=== PATIENT | female | born 1990 | race Two or more races ===

== ENCOUNTER 2019-02-18 21:41 | Emergency (ER) | payer OTHER ==
[2019-02-18] MEDS ORDERED: Acetaminophen TAB* 325 MG PO ONE (21:47)
[2019-02-18] MEDS ORDERED: Bacitracin OINTMENT* 0.5% 0.5 oz TUBE TOPICAL ONE (21:47)
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
[2019-02-18 22:42] VITALS: BP 118/78
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
== END 2019-02-18 22:41 | disposition home or self-care (01) ==
LOC: ED 21:41
DX: S80.01XA Contusion of right knee, initial encounter (principal); R04.0 Epistaxis; S00.33XA Contusion of nose, initial encounter; M25.562 Pain in left knee; M25.561 Pain in right knee; V03.90XA Pedestrian on foot injured in collision with car, pick-up truck or van, unspecified whether traffic or nontraffic accident, initial encounter; Y92.9 Unspecified place or not applicable
CPT/HCPCS: 70160; 99281

== ENCOUNTER 2023-01-11 00:36 | Inpatient (IN) ==
[2023-01-11] MEDS ORDERED: Buffered Lidocaine 1% SYRIN 1 ml INTRADERM ONE (01:16)
[2023-01-11] MEDS ORDERED: Lactated Ringers 1000 ml BAG 1,000 ML IV ONE ×2 (01:16→20:01)
[2023-01-11] MEDS ORDERED: Lactated Ringers 1000 ml BAG 1,000 ML IV SCH ×2 (02:00→21:00)
[2023-01-11 02:08] LABS: ABS Eosinophils 0.1 10^3/ul (0-0.6); ABS Lymphocytes 2.3 10^3/ul (1.0-4.8); ABS Monocytes 0.9 10^3/ul (0-0.8); ABS Neutrophils 6.4 10^3/ul (1.5-7.7); Eosinophil % 0.6 %; Hematocrit 37 % (35-47); Lymphocyte % 24.1 %; Mean Corpuscular HGB Conc 33 g/dL (31-36); Mean Corpuscular Hemoglobin 29 pg (27-31); Mean Corpuscular Volume 88 fL (80-97); Mean Platelet Volume 9.1 fL (7.4-10.4); Platelet Count 245 10^3/uL (150-450); Red Blood Count 4.21 10^6 /uL (3.70-4.87); Red Cell Distribution Width 15 % (10-15); White Blood Count 9.7 10^3/uL (3.5-10.8)
[2023-01-11] MEDS: Nalbuphine 10 MG/ML 1 ML VIAL IV PRN ×2 (02:41→16:24)
[2023-01-11] MEDS: Promethazine INJ(RESTRICTED) 25 MG/ML 1 ml VIAL IV PRN ×2 (02:42→16:24)
[2023-01-11] MEDS ORDERED: Lidocaine 1.5% EPI 1:200,000 30 ML SDV ONE (19:54)
[2023-01-11] MEDS ORDERED: OBEPIDURAL (200 ML) 200 ML EPIDURAL ONE (19:54)
[2023-01-11] MEDS ORDERED: Bupivacaine 0.25% SDV PF 10 ML VIAL INJ ONE (19:58)
[2023-01-11] MEDS ORDERED: Sodium Citrate/Citric Acid LIQ 15 ML UDC PO PRN (20:01)
[2023-01-11] MEDS ORDERED: OBEPIDURAL (200 ML) 200 ML EPIDURAL SCH (21:00)
[2023-01-11] MEDS ORDERED: Oxytocin in LR 20,000 MILLI.UNIT/1,000 ML BAG IV SCH (23:30)
[2023-01-12] MEDS ORDERED: Dibucaine 1% OINT 28.35 GM TUBE PR PRN (02:13)
[2023-01-12] MEDS ORDERED: Witch Hazel PAD JAR TOPICAL PRN (02:13)
[2023-01-12] MEDS ORDERED: Glycerin ADULT 2.4 gm SUPP PR PRN (02:13)
[2023-01-12] MEDS ORDERED: Lactated Ringers 1000 ml BAG 1,000 ML IV SCH (03:00)
[2023-01-12] MEDS ORDERED: Lidocaine 1% VIAL 10 MG/ML VIAL 30 ML ONE (06:26)
[2023-01-12 07:20] LABS: Urine Benzodiazepine Screen None Detected (None Detect); Urine Cannabinoids Screen None Detected (None Detect); Urine Opiates Screen None Detected (None Detect)
[2023-01-13 07:24] LABS: ABS Eosinophils 0.3 10^3/ul (0-0.6); ABS Lymphocytes 3.4 10^3/ul (1.0-4.8); ABS Monocytes 1.1 10^3/ul (0-0.8); ABS Neutrophils 8.8 10^3/ul (1.5-7.7); Eosinophil % 1.9 %; Hematocrit 25 % (35-47); Hemoglobin 7.8 g/dL (12.0-16.0); Lymphocyte % 25.3 %; Mean Corpuscular HGB Conc 32 g/dL (31-36); Mean Corpuscular Hemoglobin 28 pg (27-31); Mean Corpuscular Volume 89 fL (80-97); Mean Platelet Volume 8.9 fL (7.4-10.4); Platelet Count 209 10^3/uL (150-450); Red Blood Count 2.76 10^6 /uL (3.70-4.87); Red Cell Distribution Width 15 % (10-15); White Blood Count 13.6 10^3/uL (3.5-10.8)
[2023-01-14 07:52] VITALS: BP 93/62
== END 2023-01-14 18:38 | disposition home or self-care (01) | DRG 807 ==
LOC: MCHOBOUT 00:36 → MCHOB 01:51
PROVIDERS: ADMIT Obstetrics & Gynecology; ATTEND Obstetrics & Gynecology